=== PATIENT | male | born 1950 | race Caucasian/White ===

== ENCOUNTER → 2016-07-17 | Day surgery (SDC) | payer MEDICARE ==
[~2016-07-17] VITALS: Ht 171.4 cm; Wt 87.7 kg
[2016-07-17 07:54] LABS: HCT 49.5 % (42.0-52.0); HGB 16.8 g/dl (13.2-18.0); MCH 29.8 pg (25.0-31.0); MCHC 33.9 g/dL (32.0-36.0); MCV 87.9 fL (78.0-100.0); MPV 9.6 fL (6.0-9.5); RBC 5.63 M/uL (4.70-6.00); RDW 13.9 % (11.5-14.0); WBC 8.7 K/uL (4.0-10.5)
[2016-07-17 08:25] LABS: ALBUMIN 4.1 g/dL (3.4-4.8); BILIRUBIN - TOTAL 0.9 mg/dL (0.1-1.0); CREATININE 0.9 mg/dL (0.7-1.2); GLOBULIN (CALCULATION) 2.9 g/dL (2.2-4.2); POTASSIUM 4.7 mmol/L (3.5-5.1)
== END | disposition home or self-care (01) ==
LOC: FAS 07:26
PROVIDERS: Surgery
DX: Z12.11 Encounter for screening for malignant neoplasm of colon (principal); D12.0 Benign neoplasm of cecum; D12.6 Benign neoplasm of colon, unspecified; K29.50 Unspecified chronic gastritis without bleeding; K22.70 Barrett's esophagus without dysplasia; K57.30 Diverticulosis of large intestine without perforation or abscess without bleeding; K44.9 Diaphragmatic hernia without obstruction or gangrene; I10 Essential (primary) hypertension; I48.91 Unspecified atrial fibrillation; I25.2 Old myocardial infarction; I25.10 Atherosclerotic heart disease of native coronary artery without angina pectoris; E78.00 Pure hypercholesterolemia, unspecified; E78.5 Hyperlipidemia, unspecified; E66.9 Obesity, unspecified; G47.30 Sleep apnea, unspecified; Z88.8 Allergy status to other drugs, medicaments and biological substances; Z79.82 Long term (current) use of aspirin; Z98.890 Other specified postprocedural states; Z79.899 Other long term (current) drug therapy; Z99.81 Dependence on supplemental oxygen; F17.210 Nicotine dependence, cigarettes, uncomplicated
CPT/HCPCS: 36415; 80053; 88305; J2704

== ENCOUNTER 2020-08-24 21:05 | Emergency (ER) | payer MEDICARE ==
[~2020-08-24 21:05] MED LIST: ASPIRIN EC81 MG PO; CARDURA2 MG PO; COLESTID1 GM PO; COUMADIN2.5 MG PO; CRESTOR5 MG PO; DIGITEK250 MCG PO; DIGOX250 MCG PO; FISH OIL 500 M1 EAC4 PO; METFORMIN HCL500 MG PO; NEXIUM2.5 MG PO; NORCO 5-325 TA1 EACH PO; PEPCID AC20 MG PO; PROSCAR5 MG PO; TOPROL XL 50 MG50 MG PO; TOPROL XL100 MG PO; VITAMIN B-12100 MCG PO; ZESTRIL5 MG PO
[2020-08-25 00:07] LABS: BASOPHIL 0.5 % (0-2); EOSINOPHIL 1.6 % (0-7); HCT 38.4 % (42.0-52.0); HGB 12.2 g/dl (13.2-18.0); LYMPHOCYTE 6.3 % (15-48); MCH 26.7 pg (25.0-31.0); MCHC 31.8 g/dL (32.0-36.0); MONOCYTE 9.5 % (0-12); MPV 9.6 fL (6.0-9.5); NEUTROPHIL 81.9 % (41-80); NRBC 0; PLT 334 K/uL (150-400); RBC 4.57 M/uL (4.70-6.00); RDW 15.3 % (11.5-14.0); WBC 8.3 K/uL (4.0-10.5)
[2020-08-25 00:14] LABS: ALBUMIN 2.4 g/dL (3.4-5.0); BILIRUBIN - TOTAL 0.4 mg/dL (0.2-1.0); BUN/CREAT RATIO (CALC) 27.5 RATIO; CREATININE 0.8 mg/dL (0.67-1.17); GLOBULIN (CALCULATION) 3.9 g/dL; POTASSIUM 4.1 mmol/L (3.5-5.1); TOTAL PROTEIN 6.3 g/dL (6.4-8.2)
[2020-08-25 00:22] LABS: PRO-BNP 1118 pg/mL (<125)
[2020-08-25] MEDS ORDERED: CLEOCIN300 MG PO (02:43)
[2020-08-25] MEDS ORDERED: PREDNISONE 20MG20 MG PO (02:43)
== END 2020-08-25 03:00 | disposition home or self-care (01) ==
LOC: FER 21:05
PROVIDERS: Internal Medicine
DX: J18.9 Pneumonia, unspecified organism (principal); J44.9 Chronic obstructive pulmonary disease, unspecified; I50.9 Heart failure, unspecified; I48.91 Unspecified atrial fibrillation; Z88.1 Allergy status to other antibiotic agents; Z85.01 Personal history of malignant neoplasm of esophagus
CPT/HCPCS: 36415; 36600; 71045; 80053; 82803; 83880; 84484; 85025; 93005; 94640; 94664; 94760; J1642; J1940; J2930

== ENCOUNTER 2020-09-14 16:12 | Inpatient (IN) | payer MEDICARE ==
[~2020-09-14] VITALS: Ht 167.6 cm; Wt 68.6 kg
[~2020-09-14 16:12] MED LIST changes: +CLEOCIN300 MG PO; +PREDNISONE 20MG20 MG PO
[2020-09-14 17:36] LABS: BASOPHIL 0.4 % (0-2); EOSINOPHIL 1.4 % (0-7); HCT 44.6 % (42.0-52.0); LYMPHOCYTE 7.5 % (15-48); MCH 26.5 pg (25.0-31.0); MCHC 31.4 g/dL (32.0-36.0); MCV 84.5 fL (78.0-100.0); MONOCYTE 11.8 % (0-12); MPV 9.1 fL (6.0-9.5); NEUTROPHIL 78.2 % (41-80); NRBC 0; PLT 357 K/uL (150-400); RBC 5.28 M/uL (4.70-6.00); RDW 16.6 % (11.5-14.0); WBC 7.3 K/uL (4.0-10.5)
[2020-09-14 17:51] LABS: INR 1.46 (0.9-1.2)
[2020-09-14 17:52] LABS: D-DIMER 2.28 ug/mLFEU (0.00-0.41)
[2020-09-14 18:02] LABS: ALBUMIN 2.3 g/dL (3.4-5.0); BILIRUBIN - TOTAL 0.4 mg/dL (0.2-1.0); BUN/CREAT RATIO (CALC) 29.3 RATIO; CREATININE 0.92 mg/dL (0.67-1.17); GLOBULIN (CALCULATION) 4.4 g/dL; POTASSIUM 4.7 mmol/L (3.5-5.1); TOTAL PROTEIN 6.7 g/dL (6.4-8.2)
[2020-09-14 18:06] LABS: LACTIC ACID 2.3 mmol/L (0.4-1.9)
[2020-09-14 21:31] LABS: BILIRUBIN NEGATIVE (NEGATIVE); BLOOD NEGATIVE Ery/uL (NEGATIVE); CLARITY CLEAR (CLEAR); COLOR YELLOW (YELLOW); GLUCOSE (U) NORMAL (NORMAL); LEUKOCYTES NEGATIVE Leu/uL (NEGATIVE); NITRITE NEGATIVE (NEGATIVE); PROTEIN NEGATIVE (NEGATIVE); UROBILINOGEN 0.2 mg/dL (0.2-1.0)
[2020-09-14] MEDS ORDERED: DIGITEK125 MCG PO (22:36)
[2020-09-14] MEDS ORDERED: METFORMIN HCL500 MG PO (22:37)
[2020-09-14] MEDS ORDERED: ELIQUIS5 MG PO (22:37)
[2020-09-14] MEDS ORDERED: VIBRAMYCIN100 MG PO (22:38)
[2020-09-14] MEDS ORDERED: NEXIUM20 MG PO (22:38)
--- NOTE | 2020-09-15 02:17 | NUR ---
0153 Transferred to TCU bed 4 via carrier with oxygen in use.
--- NOTE | 2020-09-15 03:19 | NUR ---
PATIENT WAS TRANSFERED FROM [facility] TO [facility] DUE TO AFIB. RT ASSESSE PATIENT ON ARRIVAL TO UNIT WAS ON 50% VM, HR AROUND 120s. RALES THROUGHOUT COARSE IN BASES. PATIENT CALLED OUT ABOUT 45 MINUTES LATER STATING HE COULDNT FEEL THE OXYGEN AND COULDNT BREATHE. RT ASSESSED, PATIENT STILL COARSE RALES THROUGHOUT, SAT 94%, PATIENT IN TRIPOD POSITION IN BED, STATED HE WAS NOT ANXIOUS, BUT COULDNT BREATHE. PATIENT DOES WEAR A HOME CPAP (CPAP 8) EVERY NIGHT. SPOKE TO KENDAL HENDERSON AND OK TO PUT PATIENT ON HOSPITAL BIPAP. PATIENT INITATED ON CPAP 8 AND 40%. PATIENT CONTINUED TO MAINTAIN SAT BUT STILL FELT LIKE HE WASNT GETTING AIR. ONE TIME DOSE LASIX ORDERED ALSO AND ONE TIME XOPENEX TX. INCREASED CPAP TO 12, TX GIVEN INLINE WITH BIPAP AND PATIENT CURRENTLY RESTING WELL. BREATH SOUNDS IMPROVE WITH THERAPY GIVEN. CONTINUE TO MONITOR PATIENT. PATIENT ALSO STATED PRIOR HE HAS A SEVERE DEVIATED SEPTUM AND WAS UNABLE TO WEAR TO WEAR AN OXYGEN CANNULA TO FEEL THE FLOW.
[2020-09-15 06:18] LABS: BASOPHIL 0.6 % (0-2); HCT 43.1 % (42.0-52.0); HGB 13.6 g/dl (13.2-18.0); LYMPHOCYTE 8.2 % (15-48); MCH 26.6 pg (25.0-31.0); MCHC 31.6 g/dL (32.0-36.0); MCV 84.3 fL (78.0-100.0); MPV 8.9 fL (6.0-9.5); NEUTROPHIL 76.8 % (41-80); NRBC 0; PLT 338 K/uL (150-400); RBC 5.11 M/uL (4.70-6.00); RDW 16.5 % (11.5-14.0); WBC 6.7 K/uL (4.0-10.5)
[2020-09-15 06:34] LABS: BUN/CREAT RATIO (CALC) 31.1 RATIO; CREATININE 0.74 mg/dL (0.67-1.17)
[2020-09-16 04:26] LABS: HCT 40.3 % (42.0-52.0); HGB 12.7 g/dl (13.2-18.0); MCH 26.6 pg (25.0-31.0); MCHC 31.5 g/dL (32.0-36.0); MCV 84.3 fL (78.0-100.0); MPV 8.9 fL (6.0-9.5); RBC 4.78 M/uL (4.70-6.00); RDW 16.4 % (11.5-14.0); WBC 5.4 K/uL (4.0-10.5)
[2020-09-16 05:00] LABS: ALBUMIN 1.9 g/dL (3.4-5.0); BILIRUBIN - TOTAL 0.4 mg/dL (0.2-1.0); BUN/CREAT RATIO (CALC) 30.6 RATIO; C-REACTIVE PROTEIN 7.4 mg/dL (<=0.90); CREATININE 0.72 mg/dL (0.67-1.17); GLOBULIN (CALCULATION) 3.7 g/dL; POTASSIUM 3.9 mmol/L (3.5-5.1); TOTAL PROTEIN 5.6 g/dL (6.4-8.2)
[2020-09-17 05:53] LABS: HCT 41.4 % (42.0-52.0); HGB 12.9 g/dl (13.2-18.0); MCH 26.3 pg (25.0-31.0); MCHC 31.2 g/dL (32.0-36.0); MCV 84.5 fL (78.0-100.0); MPV 8.9 fL (6.0-9.5); RBC 4.9 M/uL (4.70-6.00); RDW 16.6 % (11.5-14.0); WBC 5.8 K/uL (4.0-10.5)
[2020-09-17 06:29] LABS: ALBUMIN 1.8 g/dL (3.4-5.0); BILIRUBIN - TOTAL 0.4 mg/dL (0.2-1.0); BUN/CREAT RATIO (CALC) 30.6 RATIO; CREATININE 0.62 mg/dL (0.67-1.17); GLOBULIN (CALCULATION) 3.8 g/dL; POTASSIUM 4.1 mmol/L (3.5-5.1); TOTAL PROTEIN 5.6 g/dL (6.4-8.2)
[2020-09-17 10:02] LABS: RETICULOCYTE COUNT 1.8 % (1.0-2.0)
[2020-09-17 10:15] LABS: IRON % SATURATION 7.1 %SAT (20-50)
[2020-09-17 10:39] LABS: FOLIC ACID (SERUM) 4.8 ng/mL (8.6-58.9); MAGNESIUM 1.7 mg/dL (1.8-2.4)
--- NOTE | 2020-09-17 15:09 | NUR ---
09/17/20 Mr. Thompson lives at home with his spouse. He was indepndent in the home and community prior to illness. He has a CPAP. Will monitor for discharge planning needs; and / or .
[2020-09-18 06:55] LABS: BASOPHIL 0.1 % (0-2); EOSINOPHIL 0 % (0-7); HCT 40.6 % (42.0-52.0); HGB 12.9 g/dl (13.2-18.0); LYMPHOCYTE 4.9 % (15-48); MCH 26.3 pg (25.0-31.0); MCHC 31.8 g/dL (32.0-36.0); MCV 82.9 fL (78.0-100.0); MONOCYTE 7.8 % (0-12); MPV 9.1 fL (6.0-9.5); NEUTROPHIL 86.8 % (41-80); NRBC 0; PLT 364 K/uL (150-400); RDW 16.6 % (11.5-14.0)
[2020-09-18 07:50] LABS: BUN/CREAT RATIO (CALC) 28.1 RATIO; CREATININE 0.57 mg/dL (0.67-1.17); MAGNESIUM 2.1 mg/dL (1.8-2.4); PHOSPHORUS 3.2 mg/dL (2.6-4.7); POTASSIUM 3.8 mmol/L (3.5-5.1)
--- NOTE | 2020-09-20 00:28 | NUR ---
2345 PT COUGHING, COUGHED UP MODERATE AMOUNT OF BLOODY SPUTUM, ANXIOUS, HR INCREASED TO 170, STAYING BETWEEN 130S-140S. [facility] [facility] NOTIFIED, RT CALLED, EKG AND CHEST XRAY OBTAINED, [facility] [facility] EVALUATED AT BEDSIDE. SPOUSE NOTIFIED PER PT REQUEST
[2020-09-20 05:59] LABS: BASOPHIL 0.1 % (0-2); EOSINOPHIL 0 % (0-7); HGB 13.1 g/dl (13.2-18.0); LYMPHOCYTE 3.8 % (15-48); MCH 26.9 pg (25.0-31.0); MCHC 31.2 g/dL (32.0-36.0); MCV 86.2 fL (78.0-100.0); MONOCYTE 9.6 % (0-12); MPV 9.3 fL (6.0-9.5); NEUTROPHIL 85.2 % (41-80); NRBC 0; PLT 447 K/uL (150-400); RBC 4.87 M/uL (4.70-6.00); RDW 17.8 % (11.5-14.0)
[2020-09-20 06:04] LABS: WBC 17.3 K/uL (4.0-10.5)
[2020-09-21 05:30] LABS: BASOPHIL 0.1 % (0-2); EOSINOPHIL 0 % (0-7); HCT 44.1 % (42.0-52.0); HGB 13.5 g/dl (13.2-18.0); LYMPHOCYTE 2.7 % (15-48); MCH 26.6 pg (25.0-31.0); MCHC 30.6 g/dL (32.0-36.0); MCV 86.8 fL (78.0-100.0); MONOCYTE 3.5 % (0-12); MPV 9.3 fL (6.0-9.5); NRBC 0; PLT 462 K/uL (150-400); RBC 5.08 M/uL (4.70-6.00); RDW 18.1 % (11.5-14.0); WBC 13.9 K/uL (4.0-10.5)
[2020-09-21 05:31] LABS: BUN/CREAT RATIO (CALC) 36.6 RATIO; CREATININE 0.82 mg/dL (0.67-1.17); PHOSPHORUS 4.7 mg/dL (2.6-4.7)
--- NOTE | 2020-09-21 16:11 | NUR ---
09/21/20 Patient was transferred to [facility].
== END 2020-09-21 15:56 | disposition other institution (70) | DRG 871 ==
LOC: FER 16:12 → FMS 19:47 → FTCU 19:47 → FMS 09-21 10:20 → FTCU 09-21 10:20
PROVIDERS: Emergency Medicine; Internal Medicine; Nurse Practitioner; Nurse Practitioner Family; ADMIT Internal Medicine
DX: A41.9 Sepsis, unspecified organism (principal); J96.01 Acute respiratory failure with hypoxia; J18.9 Pneumonia, unspecified organism; R04.2 Hemoptysis; I48.20 Chronic atrial fibrillation, unspecified; Z20.822 Contact with and (suspected) exposure to COVID-19; G47.33 Obstructive sleep apnea (adult) (pediatric); I25.10 Atherosclerotic heart disease of native coronary artery without angina pectoris; I11.9 Hypertensive heart disease without heart failure; K21.9 Gastro-esophageal reflux disease without esophagitis; N40.0 Benign prostatic hyperplasia without lower urinary tract symptoms; D64.9 Anemia, unspecified; E55.9 Vitamin D deficiency, unspecified; Z85.01 Personal history of malignant neoplasm of esophagus; Z92.21 Personal history of antineoplastic chemotherapy; Z92.3 Personal history of irradiation; Z90.49 Acquired absence of other specified parts of digestive tract; Z95.1 Presence of aortocoronary bypass graft; Z95.5 Presence of coronary angioplasty implant and graft; Z99.81 Dependence on supplemental oxygen; Z79.01 Long term (current) use of anticoagulants; Z79.82 Long term (current) use of aspirin; Z79.84 Long term (current) use of oral hypoglycemic drugs; Z79.899 Other long term (current) drug therapy; Z87.01 Personal history of pneumonia (recurrent); Z90.2 Acquired absence of lung [part of]; Z88.1 Allergy status to other antibiotic agents
CPT/HCPCS: 36415; 36600; 71045; 71275; 80048; 80053; 80162; 80202; 81003; 82607; 82728; 82746; 82803; 82962; 83540; 83550; 83605; 83615; 83735; 83880; 84100; 84145; 84439; 84443; 84484; 85025; 85379; 85610; 85730; 86140; 87040; 87070; 87088; 87205; 93005; 94010; 94640; 94660; 94667; 94668; 97161; 97166; 97530; 97535; J0282; J0456; J1100; J1160; J1940; J2543; J2916; J2930; J3370; J3475; J7030; J7050; J7060; Q9967; U0002